=== PATIENT | female | born 1945 | race Caucasian/White ===

== ENCOUNTER 2020-12-09 | Emergency (ER) | payer MEDICARE, OTHER ==
[~2020-12-09] MED LIST: ALLEGRA D; AMOXICILLIN500 MG PO; AUGMENTIN875TAB PO; CALCIUM500 M3; CLARITHROMYC500 MG PO; FIBER 7; KEFLEX500 MG PO; MULTI VIT PO; OMEPRAZOLE20 M1 PO; PREDNISONE20 MG PO; SIMVASTATIN20 MG PO
[2020-12-09] MEDS ORDERED: QUETIAPINE FUMA25 MG PO (15:46)
[2020-12-09] MEDS ORDERED: VENLAFAXINE150 MG PO (15:46)
[2020-12-09 15:47] LABS: URINE BILIRUBIN - DIPSTICK NEGATIVE (NEGATIVE); URINE BLOOD DIPSTICK LARGE (NEGATIVE); URINE COLOR YELLOW; URINE GLUCOSE - DIPSTICK NEGATIVE (NEGATIVE); URINE KETONE TRACE mg/dL (NEGATIVE); URINE LEUK ESTERASE NEGATIVE (NEGATIVE); URINE PH 5.5 (4.5-8.0); URINE PROTEIN - DIPSTICK NEGATIVE (NEG-TRACE); URINE SPECIFIC GRAVITY >=1.030; URINE UROBILINOGEN - DIPSTICK 0.2 E.U./dL (0.2)
[2020-12-09 15:48] LABS: URINE NITRITE - DIPSTICK NEGATIVE (Negative)
[2020-12-09] MEDS ORDERED: MELATONIN10 M1 PO (15:49)
[2020-12-09] MEDS ORDERED: ZYRTEC10 MG PO (15:49)
[2020-12-09] MEDS ORDERED: PRAVASTATIN10 MG PO (15:51)
[2020-12-09] MEDS ORDERED: NORVASC5 M1 PO (15:51)
[2020-12-09 16:06] LABS: IMMATURE GRANULOCYTES 0.1 % (0.0-5.0); MEAN CELL VOLUME 90.6 fL CALC (80.0-100.0); MEAN CORPUSCULAR HGB 28.7 pG CALC (26.0-32.0); MEAN CORPUSCULAR HGB CONC 31.7 g/dL CAL (32.0-36.0); NEUT# 4.52 thou/uL (2.00-7.15); RED BLOOD COUNT 3.52 mill/uL (4.20-5.60)
[2020-12-09 16:08] LABS: HEMATOCRIT 31.9 % (37.0-47.0); HEMOGLOBIN 10.1 g/dl (12.0-16.0)
[2020-12-09 16:18] LABS: ALBUMIN 4.1 g/dL (3.2-5.0); ALKALINE PHOSPHATASE 56 u/l (38-126); ANION GAP 12 (6-22 (CALC)); BILIRUBIN, TOTAL 0.5 mg/dL (0.0-1.4); BUN 8 mg/dL (8-23); BUN/CREATININE RATIO 12 (12-20 (CALC)); CARBON DIOXIDE 30 mmol/l (22-30); CHLORIDE 95 mmol/l (95-108); CREATININE 0.6 mg/dL (0.5-1.0); GFR > 60 ML/MIN (>=60 (CALC)); GFR FOR AFR.AMER. > 60 ML/MIN (>=60 (CALC)); POTASSIUM 3.3 mmol/l (3.5-5.1); SGOT/AST 43 u/l (9-36); SODIUM 134 mmol/l (137-146); TOTAL PROTEIN 7.1 g/dL (6.3-8.2)
[2020-12-09] MEDS ORDERED: DEXAMETHAS0.5 MG/5 M PO ×2 (18:03→18:04)
[2020-12-09] MEDS ORDERED: BACTRIM DS1 TAB PO (18:05)
[2020-12-09] MEDS ORDERED: NAPROXEN500 MG PO (18:07)
[2020-12-09] MEDS ORDERED: LIDOCAINE HCL VIS2 % TP (18:07)
[2020-12-09] MEDS ORDERED: CYCLOBENZAPRINE10 MG PO (18:07)
== END 2020-12-09 18:43 | disposition home or self-care (01) ==
PROVIDERS: Emergency Medicine
DX: K12.0 Recurrent oral aphthae (principal); M47.816 Spondylosis without myelopathy or radiculopathy, lumbar region; B34.9 Viral infection, unspecified; I10 Essential (primary) hypertension; Z20.822 Contact with and (suspected) exposure to COVID-19